=== PATIENT | male | born 1980 | race Caucasian/White ===

== ENCOUNTER 2020-04-10 14:52 | Emergency (ER) | payer BC, OTHER ==
[~2020-04-10] VITALS: Ht 177 cm; Wt 77.0 kg
[2020-04-10] MEDS ORDERED: LACTATED RINGERS 1,000 ML IV ONE (15:06)
[2020-04-10 15:14] LABS: ABG BASE EXCESS -2.3 MMOL/L (-2.5-2.5); ABG OXYGEN SATURATION 99 % (94-100); ABG PCO2 24 MMHG (35-45); ABG PH 7.53 (7.37-7.43); ABG PO2 114 MMHG (79-93); ABG TCO2 20.9 MMOL/L (21.0-31.0); ALLENS TEST POSITIVE
[2020-04-10 15:15] LABS: PATIENT TEMP 98.5; VENTILATOR NO
[2020-04-10] MEDS ORDERED: ONDANSETRON 4 MG/2 ML (SDV) Z0FRAN IVP ONE (15:15)
[2020-04-10 15:16] LABS: BASOPHILS % (AUTO) 0 % (0-10); EOSINOPHILS # (AUTO) 0.1 10^3/uL (0.0-0.3); EOSINOPHILS % (AUTO) 1 % (0-10); HEMATOCRIT 42 % (40-54); HEMOGLOBIN 15.1 G/DL (13.3-17.7); LYMPHOCYTES # (AUTO) 2.3 X 10^3 (1.0-4.0); LYMPHOCYTES % (AUTO) 17 % (12-44); MEAN CORPUSCULAR HEMOGLOBIN 31 PG (25-34); MEAN CORPUSCULAR HGB CONC 36 G/DL (32-36); MEAN CORPUSCULAR VOLUME 86 FL (80-99); MEAN PLATELET VOLUME 9.8 FL (7.4-10.4); MONOCYTES # (AUTO) 1.2 X 10^3 (0.0-1.0); MONOCYTES % (AUTO) 9 % (0-12); NEUTROPHILS # (AUTO) 10.2 X 10^3 (1.8-7.8); NEUTROPHILS % (AUTO) 74 % (42-75); PLATELET COUNT 264 10^3/uL (130-400); RED CELL DISTRIBUTION WIDTH 12.8 % (10.0-14.5); WHITE BLOOD COUNT 13.7 10^3/uL (4.3-11.0)
--- NOTE | 2020-04-10 15:17 | ED Respiratory ---
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 His had similar rest or symptoms starting a couple days ago. He does have a history of asthma but says his albuterol inhaler did not help. EMS says he did not have any wheezing and had 98-100% on room air oxygen sats. Patient had some worsening discomfort body aches and nausea with vomiting after coming back from his break. He does not have any other significant medical history. He did recently have carpal tunnel syndrome procedure done at [facility]. No diarrhea, fever, rash. Allergies and Home Medications Allergies Coded Allergies: No Known Drug Allergies (Unverified , 04/10/20) Patient Home Medication List Home Medication List Reviewed: Yes Review of Systems Review of Systems Constitutional: No chills, No fever; malaise EENTM: No ear discharge, No ear pain Respiratory: cough; No hemoptysis, No orthopnea; phlegm, short of breath; No wheezing Cardiovascular: No chest pain, No edema, No Hx of Intervention, No palpitations Gastrointestinal: No abdominal pain, No constipation, No diarrhea; nausea, vomiting Genitourinary: No discharge, No dysuria Musculoskeletal: No back pain, No joint pain Skin: No pruritus, No rash Psychiatric/Neurological: Denies Headache, Denies Numbness, Denies Paresthesia All Other Systems Reviewed Negative Unless Noted: Yes Past Rlibbhs-Iqebyh-Iofmwp Hx Patient Social History Alcohol Use: Occasionally Uses Recreational Drug Use: Yes Drug of Choice: occ cannabis Smoking Status: Current Everyday Smoker Physical Exam Vital Signs - First Documented 04/10/20 14:55 Temp 37.0 Pulse 108 Resp 22 B/P (MAP) 135/80 (98) Pulse Ox 99 Capillary Refill : Height: '" Weight: lbs. oz. kg; BMI Method: General Appearance: WD/WN, mild distress Eyes: Bilateral Eye Normal Inspection, Bilateral Eye PERRL, Bilateral Eye EOMI HEENT: PERRL/EOMI, normal ENT inspection, pharynx normal (oral mucosa is mildly dry.) Neck: full range of motion, supple, normal inspection Respiratory: lungs clear, normal breath sounds, no respiratory distress, no accessory muscle use Cardiovascular: normal peripheral pulses, regular rate, rhythm, no murmur Gastrointestinal: normal bowel sounds, non tender, soft Extremities: non-tender, normal inspection, normal capillary refill Neurologic/Psychiatric: alert, normal mood/affect, oriented x 3 Skin: normal color, warm/dry Progress/Results/Core Measures Suspected Sepsis SIRS Temperature: Pulse: Respiratory Rate: Laboratory Tests 04/10/20 15:03: White Blood Count 13.7H Blood Pressure / Mean: Laboratory Tests 04/10/20 15:03: Creatinine 0.91, Platelet Count 264, Total Bilirubin 0.6 Results/Orders Lab Results Laboratory Tests Test 04/10/20 15:00 04/10/20 15:03 04/10/20 15:05 04/10/20 15:10 Range/Units Blood Gas Puncture Site RIGHT RADIAL Blood Gas Patient Temperature 98.5 Arterial Blood pH 7.53 H 7.37-7.43 Arterial Blood Partial Pressure CO2 24 L 35-45 MMHG Arterial Blood Partial Pressure O2 114 H 79-93 MMHG Arterial Blood HCO3 20 L 23-27 MMOL/L Arterial Blood Total CO2 20.9 L 21.0-31.0 MMOL/L Arterial Blood Oxygen Saturation 99 94-100 % Arterial Blood Base Excess -2.3 -2.5-2.5 MMOL/L Vik Test POSITIVE Blood Gas Ventilator Setting NO Blood Gas Inspired Oxygen N/A White Blood Count 13.7 H 4.3-11.0 10^3/uL Red Blood Count 4.85 4.35-5.85 10^6/uL Hemoglobin 15.1 13.3-17.7 G/DL Hematocrit 42 40-54 % Mean Corpuscular Volume 86 80-99 FL Mean Corpuscular Hemoglobin 31 25-34 PG Mean Corpuscular Hemoglobin Concent 36 32-36 G/DL Red Cell Distribution Width 12.8 10.0-14.5 % Platelet Count 264 130-400 10^3/uL Mean Platelet Volume 9.8 7.4-10.4 FL Neutrophils (%) (Auto) 74 42-75 % Lymphocytes (%) (Auto) 17 12-44 % Monocytes (%) (Auto) 9 0-12 % Eosinophils (%) (Auto) 1 0-10 % Basophils (%) (Auto) 0 0-10 % Neutrophils # (Auto) 10.2 H 1.8-7.8 X 10^3 Lymphocytes # (Auto) 2.3 1.0-4.0 X 10^3 Monocytes # (Auto) 1.2 H 0.0-1.0 X 10^3 Eosinophils # (Auto) 0.1 0.0-0.3 10^3/uL Basophils # (Auto) 0.0 0.0-0.1 10^3/uL Erythrocyte Sedimentation Rate 5 0-15 MM/HR Sodium Level 137 135-145 MMOL/L Potassium Level 3.5 L 3.6-5.0 MMOL/L Chloride Level 106 98-107 MMOL/L Carbon Dioxide Level 18 L 21-32 MMOL/L Anion Gap 13 5-14 MMOL/L Blood Urea Nitrogen 26 H 7-18 MG/DL Creatinine 0.91 0.60-1.30 MG/DL Estimat Glomerular Filtration Rate > 60 BUN/Creatinine Ratio 29 Glucose Level 103 70-105 MG/DL Calcium Level 9.5 8.5-10.1 MG/DL Corrected Calcium 9.2 8.5-10.1 MG/DL Total Bilirubin 0.6 0.1-1.0 MG/DL Aspartate Amino Transf (AST/SGOT) 29 5-34 U/L Alanine Aminotransferase (ALT/SGPT) 25 0-55 U/L Alkaline Phosphatase 63 40-136 U/L C-Reactive Protein High Sensitivity 0.16 0.00-0.50 MG/DL Total Protein 7.0 6.4-8.2 GM/DL Albumin 4.4 3.2-4.5 GM/DL Procalcitonin 0.04 <0.10 NG/ML D-Dimer 0.27 0.00-0.49 UG/ML Micro Results Microbiology 04/10/20 Influenza Types A,B Antigen (FRANCISCO) - Final, Complete My Orders Orders - JAMILAH NATARAJAN Ed Iv/Invasive Line Start (04/10/20 15:06) Lactated Ringers (Lr 1000 Ml Iv Solution (04/10/20 15:06) Cbc With Automated Diff (04/10/20 15:06) Comprehensive Metabolic Panel (04/10/20 15:06) Hs C Reactive Protein (04/10/20 15:06) Chest 1 View, Ap/Pa Only (04/10/20 15:06) Blood Culture (04/10/20 15:06) Arterial Blood Gas (04/10/20 15:06) Fibrin Degradation Products (04/10/20 15:09) Procalcitonin (Pct) (04/10/20 15:09) Erythrocyte Sedimentation Rate (04/10/20 15:09) Sputum Culture (04/10/20 15:09) Influenza A And B Antigens (04/10/20 15:09) Coronavirus Sars-Cov-2 So 2018 (04/10/20 15:09) Ondansetron Injection (Zofran Injectio (04/10/20 15:15) Medications Given in ED Current Medications Medications Dose Ordered Sig/Sulma Route Start Time Stop Time Status Last Admin Dose Admin Lactated Ringer's 1,000 ml @ 0 mls/hr Q0M ONCE IV 04/10/20 15:06 04/10/20 15:10 DC 04/10/20 15:29 1,000 MLS/HR Ondansetron HCl 8 mg ONCE ONCE IVP 04/10/20 15:15 04/10/20 15:16 DC 04/10/20 15:29 8 MG Vital Signs/I&O 04/10/20 14:55 Temp 37.0 Pulse 108 Resp 22 B/P (MAP) 135/80 (98) Pulse Ox 99 Capillary Refill : Progress Note : Time: 15:17 Progress Note plan to give him a liter fluids, Zofran for nausea and chest x-ray and labs. Vital signs are unremarkable. With his recent family illnesses could be technical disease so we will get a flu swab and COVID 19 swab. He will not likely need inpatient treatment. ABG acquired. Diagnostic Imaging Diagonstic Imaging: Xray Plain Films/CT/US/NM/MRI: chest (1v) Comments NAME: AHMET JUAREZ [facility] REC#: [id number] PT STATUS: REG ER : 1980 PHYSICIAN: JAMILAH NATARAJAN MD ADMIT DATE: 04/10/20/ER Draft Date of Exam:04/10/20 CHEST 1 VIEW, AP/PA ONLY INDICATION: Shortness of breath, cough, nausea. TECHNIQUE: Single view chest 3:17 PM. CORRELATION STUDY: None FINDINGS: The heart size, mediastinal configuration and pulmonary vascularity are within normal limits. The lungs are clear with no consolidating infiltrate. There is no significant effusion or pneumothorax. IMPRESSION: 1. Negative appearing portable chest. Dictated on workstation # [id number] Dict: 04/10/20 1528 Trans: 04/10/20 1529 DO [id number] Interpreted by: TORY MORELOS DO Electronically signed by: Reviewed: Reviewed by Me Departure Impression Primary Impression: Acute viral bronchitis Additional Impressions: Nausea & vomiting Qualified Codes: R11.2 - Nausea with vomiting, unspecified Person under investigation for severe acute respiratory syndrome coronavirus 2 (SARS-CoV-2) infection Disposition: HOME, SELF-CARE Condition: Stable Departure-Patient Inst. Decision time for Depature: 16:08 Patient Instructions: Acute Bronchitis, Coronavirus Disease 2019 (COVID-19) Overview Add. Discharge Instructions: Your symptoms are consistent with a viral pneumonia or bronchitis. We have obtained a swab for COVID 19 and we'll call you in the next 2-3 days with results. Tessalon Perles 1 capsule every 6 hours as necessary for coughing. Ondansetron one tablet under the tongue every 6 hours as necessary for nausea or vomiting. Tylenol 1000 mg every 8 hours as necessary for body aches or fever. Ibuprofen 800 mg every 8 hours as necessary for fever or body aches. Please return to the nearest ER should you experience worsening shortness of breath or new worrisome symptoms. Please stay quarantined at your home away from other people. You may return to work when you are both 10 days out from the start of your symptoms as well as 72 hours symptom free. All discharge instructions reviewed with patient and/or family. Voiced understanding. Scripts Ondansetron (Ondansetron Odt) 4 Mg Tab.rapdis 4 MG PO Q6H PRN for NAUSEA/VOMITING, #8 TAB 0 Refills Prov: JAMILAH NATARAJAN 04/10/20 Benzonatate (TESSALON PERLES) 100 Mg Capsule 100 MG PO Q6H PRN for COUGH, #30 CAP 0 Refills Prov: JAMILAH NATARAJAN 04/10/20 Work/School Note: Work Release Form Date Seen in the Emergency Department: Apr 10, 2020 Return to Work: Apr 20, 2020 Restrictions: Need Release from Doctor Other Restrictions Listed Below: Return to work @ 72 hours symptom free and 10 days from start of symptoms. JAMILAH NATARAJAN Apr 10, 2020 15:17
--- NOTE | 2020-04-10 15:29 | Diagnostic Imaging Report ---
INDICATION: Shortness of breath, cough, nausea. TECHNIQUE: Single view chest 3:17 PM. CORRELATION STUDY: None FINDINGS: The heart size, mediastinal configuration and pulmonary vascularity are within normal limits. The lungs are clear with no consolidating infiltrate. There is no significant effusion or pneumothorax. IMPRESSION: 1. Negative appearing portable chest. Dictated by: Dictated on workstation # [id number]
[2020-04-10 15:45] LABS: ERYTHROCYTE SEDIMENTATION RATE 5 MM/HR (0-15)
[2020-04-10 15:46] LABS: ALANINE AMINOTRANSFERASE 25 U/L (0-55); ALBUMIN 4.4 GM/DL (3.2-4.5); ALKALINE PHOSPHATASE 63 U/L (40-136); BILIRUBIN,TOTAL 0.6 MG/DL (0.1-1.0); BUN/CREATININE RATIO 29; CALCIUM 9.5 MG/DL (8.5-10.1); CARBON DIOXIDE 18 MMOL/L (21-32); CHLORIDE 106 MMOL/L (98-107); CREATININE SERUM 0.91 MG/DL (0.60-1.30); GFR ESTIMATED > 60; GLUCOSE 103 MG/DL (70-105); POTASSIUM 3.5 MMOL/L (3.6-5.0); SODIUM 137 MMOL/L (135-145)
[2020-04-10] MEDS ORDERED: KETOROLAC 30 MG/ML VIAL ONE (16:24)
[2020-04-10] MEDS ORDERED: ONDA4TAB11 PO (16:27)
[2020-04-10] MEDS ORDERED: BENZ100C18 PO (16:27)
[2020-04-10 16:45] VITALS: BP 122/84
== END 2020-04-10 16:45 | disposition home or self-care (01) ==
LOC: ER 14:54
DX: J20.8 Acute bronchitis due to other specified organisms (principal); R11.2 Nausea with vomiting, unspecified; F17.200 Nicotine dependence, unspecified, uncomplicated; Z20.828 Contact with and (suspected) exposure to other viral communicable diseases
CPT/HCPCS: 71045; 80053; 82805; 84145; 85025; 85379; 85652; 86141; 87040; 87804; U0002; 36415; 87635

== ENCOUNTER 2022-10-10 15:41 | Outpatient (RCR) | payer BC ==
[~2022-10-10 15:41] MED LIST: BENZ100C18 PO; ONDA4TAB11 PO
== END 2022-10-15 | disposition home or self-care (01) ==
PROVIDERS: ATTEND Orthopaedic Surgery
DX: Z98.890 Other specified postprocedural states (principal)

== ENCOUNTER 2022-10-18 14:41 | Outpatient (RCR) | payer BC | END 2022-11-15 | disposition home or self-care (01) | PROVIDERS: ATTEND Orthopaedic Surgery | DX: Z98.890 Other specified postprocedural states (principal) ==